=== PATIENT | female | born 1985 | race Caucasian/White ===

== ENCOUNTER 2017-11-05 11:37 | Emergency (ER) | payer BC ==
[2017-11-05] MEDS: NS 1,000 ML IV (13:28)
[2017-11-05 13:40] LABS: BASO # 0.1 10^3/uL (0.0-0.2); BASO % 0.4 % (0.0-1.0); EOS % 0.1 % (0.0-3.0); HEMATOCRIT 49.6 % (36.0-47.0); HEMOGLOBIN 17.5 g/dl (12.0-15.5); IMMATURE GRANULOCYTE % 0.4 % (0-3.0); LYMPH # 1.7 10^3/uL (1.5-4.5); LYMPH % 12.7 % (24.0-44.0); MEAN CORPUSCULAR HEMOGLOBIN 29.7 pg (27.0-33.0); MEAN CORPUSCULAR HGB CONC 35.3 g/dl (32.0-36.5); MEAN CORPUSCULAR VOLUME 84.2 fl (80.0-96.0); MONO # 0.5 10^3/uL (0.0-0.8); MONO % 3.5 % (0.0-5.0); NEUTROPHILS # 10.9 10^3/uL (1.8-7.7); NEUTROPHILS % 82.9 % (36.0-66.0); PLATELET COUNT, AUTOMATED 408 10^3/uL (150-450); RED BLOOD COUNT 5.89 10^6/uL (4.00-5.40); RED CELL DISTRIBUTION WIDTH 12.3 % (11.5-14.5); WHITE BLOOD COUNT 13.2 10^3/uL (4.0-10.0)
[2017-11-05 14:18] LABS: VITAMIN B12 LEVEL 551 PG/ML (247-911)
[2017-11-05 14:29] LABS: BLOOD UREA NITROGEN 8 MG/DL (7-18); CREATININE FOR GFR 0.85 MG/DL (0.55-1.30); GLOMERULAR FILTRATION RATE > 60.0 (>60); GLUCOSE, FASTING 96 MG/DL (70-100); SODIUM LEVEL 139 MEQ/L (136-145)
[2017-11-05 14:30] LABS: ANION GAP 10 MEQ/L (8-16); CALCIUM LEVEL 9.8 MG/DL (8.5-10.1); CARBON DIOXIDE LEVEL 25 MEQ/L (21-32); CHLORIDE LEVEL 104 MEQ/L (98-107)
[2017-11-05 14:31] LABS: ALT/SGPT 18 U/L (12-78); AST/SGOT 10 U/L (7-37); CK-MB VALUE MASS < 1.0 NG/ML (<3.6); CPK CREATINE PHOSPHOKINASE 48 U/L (26-192)
[2017-11-05 14:32] LABS: ALBUMIN 4.6 GM/DL (3.2-5.2); ALKALINE PHOSPHATASE 98 U/L (45-117); BILIRUBIN,TOTAL 0.7 MG/DL (0.2-1.0); TOTAL PROTEIN 8.7 GM/DL (6.4-8.2)
[2017-11-05 14:34] LABS: ALBUMIN/GLOBULIN RATIO 0.89 (1.00-1.93); FREE THYROXINE INDEX 4.5 % (1.3-4.8); T UPTAKE 31 % (30-39); THYROXINE (T4) 14.5 UG/DL (4.5-12.0); TROPONIN I < 0.02 NG/ML (< 0.10)
[2017-11-05 15:24] LABS: AMPHETAMINES LEVEL URINE NEGATIVE (NEGATIVE); BARBITURATES URINE NEGATIVE (NEGATIVE); BENZODIAZEPINES URINE NEGATIVE (NEGATIVE); CANNABINOIDS URINE NEGATIVE (NEGATIVE); COCAINE METABOLITE URINE NEGATIVE (NEGATIVE); METHADONE URINE NEGATIVE (NEGATIVE); OPIATES URINE NEGATIVE (NEGATIVE); PHENCYCLIDINE URINE NEGATIVE (NEGATIVE)
[2017-11-05 17:12] LABS: KETONE, URINE AUTO RFX 2+ mg/dL (NEGATIVE); MUCUS, URINE RFX MODERATE (NEGATIVE); NITRITE, URINE AUTO RFX NEGATIVE (NEGATIVE); RBC, URINE AUTO RFX 6 /HPF (0-3); SPECIFIC GRAVITY UR AUTO RFX 1.011 (1.002-1.035); SQUAM EPITHELIAL CELL UR AURFX 4 /HPF (0-6); WBC, URINE AUTO RFX 8 /HPF (0-3)
[2017-11-05 17:13] LABS: LEUKOCYTE ESTERASE UR AUTO RFX 2+ (NEGATIVE)
[2017-11-05 17:27] LABS: CONTROL LINE UCG INT CTR LINE PRESENT; URINE PREG TEST NEGATIVE (NEGATIVE)
== END 2017-11-05 18:02 | disposition home or self-care (01) ==
LOC: M ED 11:37
DX: F41.0 Panic disorder [episodic paroxysmal anxiety] (principal); N39.0 Urinary tract infection, site not specified
CPT/HCPCS: 71046

== ENCOUNTER → 2017-11-26 | Outpatient (REF) | payer BC ==
[2017-11-26 19:02] LABS: FERRITIN 60 NG/ML (8-252); IRON (FE) 63 UG/DL (50-170); PERCENT SATURATION 18.8 % (13.2-45.0); TOTAL IRON BINDING CAPACITY 335 UG/DL (250-450)
== END ==
LOC: M LAB REF 18:24
DX: R71.8 Other abnormality of red blood cells (principal)

== ENCOUNTER → 2020-03-23 | Outpatient (REF) | payer BC ==
[~2020-03-23] MED LIST: ANUS2.5C2 TOP; COLA50CA3 PO; HYDR-3363 PO; IBUP80TA PO; KEFL500C17 PO; MACR100C43 PO; MAPA500T17 PO; MILKSUS5 PO; SERT25TA21
[2020-03-23 21:30] LABS: APPEARANCE, URINE CLEAR (CLEAR); BACTERIA, URINE AUTO 2+ (NEGATIVE); BILIRUBIN, URINE AUTO NEGATIVE (NEGATIVE); BLOOD, URINE BLOOD NEGATIVE (NEGATIVE); COLOR, URINE STRAW (YELLOW); GLUCOSE, URINE (UA) AUTO NEGATIVE (NEGATIVE); KETONE, URINE AUTO NEGATIVE (NEGATIVE); LEUKOCYTE ESTERASE, URINE AUTO TRACE (NEGATIVE); MUCUS, URINE SMALL (NEGATIVE); NITRITE, URINE AUTO NEGATIVE (NEGATIVE); PROTEIN, URINE AUTO NEGATIVE (NEGATIVE); RBC, URINE AUTO 0 /HPF (0-3); SPECIFIC GRAVITY URINE AUTO 1.002 (1.002-1.035); SQUAMOUS EPITHELIAL CELL UR AU 1 /HPF (0-6); UROBILINOGEN, URINE AUTO 0.2 mg/dL (0.0-2.0); WBC, URINE AUTO 2 /HPF (0-3)
== END ==
LOC: M LAB 21:15
PROVIDERS: ATTEND Physician Assistant Medical
DX: N39.0 Urinary tract infection, site not specified (principal)

== ENCOUNTER 2020-03-25 08:18 | Emergency (ER) | payer BC, OTHER ==
[~2020-03-25] VITALS: Ht 165.1 cm; Wt 74.0 kg
[~2020-03-25 08:18] MED LIST changes: -MACR100C43 PO
--- OUTSIDE RECORDS SUMMARY | 2020-03-25 08:25 | CCD ---
Author Author [facility] Organization [facility] Address Unknown Phone Unavailable Care Team Providers Care Hand Candy Dipper Name Role Phone Drake, Genny DO Unavailable Unavailable Drake, Genny DO Unavailable Unavailable Drake, Genny DO Unavailable Unavailable Drake, Genny DO Unavailable Unavailable Drake, Genny DO Unavailable Unavailable Drake, Genny DO Unavailable Unavailable Drake, Genny DO Unavailable Unavailable Drake, Genny DO Unavailable Unavailable Drake, Genny DO Unavailable Unavailable Drake, Genny DO Unavailable Unavailable Drake, Genny DO Unavailable Unavailable Drake, Genny DO Unavailable Unavailable Drake, Genny DO Unavailable Unavailable Drake, Genny DO Unavailable Unavailable Drake, Genny DO Unavailable Unavailable Drake, Genny DO Unavailable Unavailable Drake, Genny DO Unavailable Unavailable Drake, Genny DO Unavailable Unavailable Drake, Genny DO Unavailable Unavailable Drake, Genny DO Unavailable Unavailable Drake, Genny DO Unavailable Unavailable Drake, Genny DO Unavailable Unavailable Drake, Genny DO Unavailable Unavailable Drake, Genny DO Unavailable Unavailable Drake, Genny DO Unavailable Unavailable Drake, Genny DO Unavailable Unavailable Drake, Genny DO Unavailable Unavailable Drake, Genny DO Unavailable Unavailable Drake, Genny DO Unavailable Unavailable Drake, Genny DO Unavailable Unavailable Drake, Genny DO Unavailable Unavailable Drake, Genny DO Unavailable Unavailable Drake, Genny DO Unavailable Unavailable Drake, Genny DO Unavailable Unavailable Drake, Genny DO Unavailable Unavailable Drake, Genny DO Unavailable Unavailable Drake, Genny DO Unavailable Unavailable Drake, Genny DO Unavailable Unavailable Drake, Genny DO Unavailable Unavailable Drake, Genny DO Unavailable Unavailable Drake, Genny DO Unavailable Unavailable Drake, Genny DO Unavailable Unavailable Drake, Genny DO Unavailable Unavailable Drake, Genny DO Unavailable Unavailable Drake, Genny DO Unavailable Unavailable Drake, Genny DO Unavailable Unavailable Drake, Genny DO Unavailable Unavailable Drake, Genny DO Unavailable Unavailable Drake, Genny DO Unavailable Unavailable Drake, Genny DO Unavailable Unavailable Drake, Genny DO Unavailable Unavailable Drake, Genny DO Unavailable Unavailable Drake, Genny DO Unavailable Unavailable Drake, Genny DO Unavailable Unavailable Drake, Genny DO Unavailable Unavailable Drake, Genny DO Unavailable Unavailable Drake, Genny DO Unavailable Unavailable Drake, Genny DO Unavailable Unavailable Drake, Genny DO Unavailable Unavailable Drake, Genny DO Unavailable Unavailable Drake, Genny DO Unavailable Unavailable Drake, Genny DO Unavailable Unavailable Drake, Genny DO Unavailable Unavailable Drake, Genny DO Unavailable Unavailable Drake, Genny DO Unavailable Unavailable Drake, Genny DO Unavailable Unavailable Drake, Genny DO Unavailable Unavailable Drake, Genny DO Unavailable Unavailable Drake, Genny DO Unavailable Unavailable Drake, Genny DO Unavailable Unavailable Drake, Genny DO Unavailable Unavailable Drake, Genny DO Unavailable Unavailable Re-disclosure Warning The records that you are about to access may contain information from federally-assisted alcohol or drug abuse programs. If such information is present, then the following federally mandated warning applies: This information has been disclosed to you from records protected by federal confidentiality rules (42 CFR part 2). The federal rules prohibit you from making any further disclosure of this information unless further disclosure is expressly permitted by the written consent of the person to whom it pertains or as otherwise permitted by 42 CFR part 2. A general authorization for the release of medical or other information is NOT sufficient for this purpose. The Federal rules restrict any use of the information to criminally investigate or prosecute any alcohol or drug abuse patient.The records that you are about to access may contain highly sensitive health information, the redisclosure of which is protected by Article 27-F of the [place] State Public Health law. If you continue you may have access to information: Regarding HIV / AIDS; Provided by facilities licensed or operated by the [facility] Office of Mental Health; or Provided by the [facility] Office for People With Developmental Disabilities. If such information is present, then the following [facility] mandated warning applies: This information has been disclosed to you from confidential records which are protected by state law. State law prohibits you from making any further disclosure of this information without the specific written consent of the person to whom it pertains, or as otherwise permitted by law. Any unauthorized further disclosure in violation of state law may result in a fine or nursing home sentence or both. A general authorization for the release of medical or other information is NOT sufficient authorization for further disc losure. Family History Family Member Name Family Member Gender Family Member Status Date o f Status Description Data Source(s) Unknown Female Problem [facility] ([facility]) Encounters Encounter Providers Location Date Indications Data Source(s ) Outpatient Attender: Genny Morejon 01/04 09:40:00 AM EST [facility] ([facility] ) Outpatient Attender: Genny Morejon 07/01 10:00:00 AM EDT [facility] ([facility] ) Immunizations Vaccine Date Status Description Data Source(s) INFLUENZA VIRUS VACCINE QUADRIVALENT 2019- (6 MOS AN D UP) 11/28/2019 12:00:00 AM EDT completed [facility] Medications Medication Brand Name Start Date Product Form Dose Route Admi nistrative Instructions Pharmacy Instructions Status Indications Reaction Description Data Source(s) 100 mg 03/23/2020 12:00:00 AM EST capsule 14 TAKE ONE CAPSULE BY MOUTH EVERY 12 HOURS FOR 7 DAYS TAKE ONE CAPSULE BY MOUTH EVERY 12 HOURS FOR 7 DAYS SO LD: 03/23/2020 [facility] Multi Vitamin 09/03/2019 12:00:00 AM EDT acti ve [facility] ([facility]) Fexofenadine hydrochloride 60 MG Oral Tablet Fexofenadine HC L 09/03/2019 12:00:00 AM EDT ORAL active M [facility] ([facility]) Hydroxyzine Hydrochloride 10 MG Oral Tablet Hydroxyzine HCL 09/03/2019 12:00:00 AM EDT ORAL active [facility] ([facility] 0.1 % 08/01/2019 12:00:00 AM EDT cream 60 APPLY TOPICALLY TWO TIMES A DAY APPLY TOPICALLY TWO TIMES A DAY SOLD: 08/01/2019 [facility] 50 mg 01/01/2019 12:00:00 AM EST tablet 30 TAKE ONE TABLET BY MOUTH EVERY DAY TAKE ONE TABLET BY MOUTH EVERY DAY SOLD: 03/14/2019 [facility] 50 mg 01/01/2019 12:00:00 AM EST tablet 30 TAKE ONE TABLET BY MOUTH EVERY DAY TAKE ONE TABLET BY MOUTH EVERY DAY SOLD: 02/07/2019 [facility] Insurance Providers Payer name Policy type / Coverage type Policy ID Covered green party ID Covered green party's relationship to guaman Policy [place] Plan Information [place] 302/307 [id number] [place] Trad/MX Commercial [id number] Family Dependen t [id number] [place] BCBS B [id number] P [id number] [place] P[place] 302/307 [id number] [place] BCBS B [id number] P [id number] [employer] BCBS B [id number] P [id number] [id number] [place] Trad/MX Commercial 802 Family Dependent 802 [employer] BC-BS PPO 306 [id number] [id number] [place] BC-BS PPO 306 [id number] Surgeries/Procedures Procedure Description Date Indications Data Source(s) XTRNL PT ACTIVATED ECG RECORD MONITOR 30 DAYS 09/04/19 20 12:00:00 AM EDT [facility] ([facility]) XTRNL PT ACTIVTD ECG DWNLD 30 DAYS PHYS R&I 09/04/2019 12:00:00 AM EDT [facility] ([facility]) Results ID Date Data Source [id number] 07/02/2019 08:57:00 AM EDT [facility] ([facility]) Name Value Range Interpretation Code Description Data Denisa rce(s) Supporting Document(s) Thyrotropin [Units/volume] in Serum or Plasma by Detec tion limit <= 0.05 mIU/L 1.95 uIU/mL 0.36-3.74 [facility] ([facility] ) ID Date Data Source [id number] 07/02/2019 08:57:00 AM EDT [facility]) Name Value Range Interpretation Code Description Data Denisa rce(s) Supporting Document(s) Cholesterol [Mass/volume] in Serum or Plasma 228 mg/dL 131-200 [facility] ([facility]) Cholesterol in HDL [Mass/volume] in Serum or Plasma 43 mg/dL 35-60 [facility] ([facility]) Triglyceride [Mass/volume] in Serum or Plasma 196 mg/dL 30-150 [facility] ([facility]) Cholesterol in LDL [Mass/volume] in Serum or Plasma by calcu lation 146 CALC 50-159 [facility] ([facility]) ID Date Data Source [id number] 07/02/2019 08:57:00 AM EDT [facility] ([facility]) Name Value Range Interpretation Code Description Data Denisa rce(s) Supporting Document(s) Glucose [Mass/volume] in Serum or Plasma 106 mg/dL 74-99 [facility] ([facility]) 100-125 mg/dL PRE-DIABETES/FASTING >126 mg/dL DIABETES/FASTING Urea nitrogen [Mass/volume] in Serum or Plasma 11 mg/dL 7-18 [facility] ([facility]) Creatinine 0.9 mg/dL 0.6-1.3 [facility]) Sodium [Moles/volume] in Serum or Plasma 143 meq/L 136-145 [facility] ([facility]) Potassium [Moles/volume] in Serum or Plasma 3.7 meq/L 3.5-5.1 [facility] ([facility]) Calcium [Mass/volume] in Serum or Plasma 8.6 mg/dL 8.5-10.1 [facility] ([facility]) Chloride [Moles/volume] in Serum or Plasma 106 meq/L 98-107 [facility] ([facility]) Carbon dioxide, total [Moles/volume] in Serum or Plasma 23 meq/L 21 -32 [facility] ([facility]) Total Bilirubin 0.3 mg/dL 0.2-1.0 [facility] ([facility]) Alkaline phosphatase isoenzyme [Units/volume] in Serum or Pl asma 79 mg/dL 46-116 [facility]) Aspartate aminotransferase [Enzymatic activity/volume] in Serum or Plasma 20 U/L 15-37 [facility] Alanine aminotransferase [Enzymatic activity/volume] in Seru m or Plasma 27 U/L 12-78 [facility] ([facility]) Albumin [Mass/volume] in Serum or Plasma 3.7 g/dL 3.4-5.0 [facility] ([facility]) A/G Ratio 1.09 CALC 1.00-1.90 [facility] Proteinase 3 Ab [Units/volume] in Serum 7.1 g/dL 6.4-8.2 [facility] Glomerular filtration rate/1.73 sq M pre dicted among non-blacks [Volume Rate/Area] in Serum or Plasma by Creatinine-based formula (MDRD) Laboratory test result [facility] Glomerular filtration rate/1.73 sq M pre dicted among blacks [Volume Rate/Area] in Serum or Plasma by Creatinine-based formula (MDRD) Laboratory test result [facility] <content>CHRONIC KIDNEY DISEASE STAGING PER NKF</content>
<content></content>
<content>STAGE I & II GFR >= 60 NORMAL TO MILDLY DECREASED</content>
<content>STAGE III GFR 30-59 MODERATELY DECREASED</content>
<content>STAGE IV GFR 15-29 SEVERELY DECREASED</content>
<content>STAGE V GFR <15 VERY LITTLE GFR LEFT</content>
<content>ESRD GFR <15 ON J2EE ARCHITECT</content>
<content></content> ID Date Data Source [id number] 07/02/2019 08:57:00 AM EDT [facility] ([facility]) Name Value Range Interpretation Code Description Data Denisa rce(s) Supporting Document(s) Leukocytes [#/volume] in Blood by Automated count 8.9 x10*3/UL 4.1-10 .9 [facility] Hematocrit [Volume Fraction] of Blood by Automated count 43.8 % 3 7.0-51.0 [facility] Hemoglobin [Mass/volume] in Blood 15.0 g/dL 12.0-18.0 [facility] Erythrocytes [#/volume] in Blood by Automated count 5.30 x10*6/UL 4.2 0-6.30 [facility] ([facility]) MCH 28.4 pg 26.0-32.0 [facility] MCHC 34.3 g/dL 31.0-38.0 [facility] MCV 82.6 fL 80.0-97.0 [facility] MPV 8.2 FL 7.8-11.0 [facility] Erythrocyte distribution width [Ratio] by Automated count 12.3 % 11.6-13.7 [facility] Platelets [#/volume] in Blood by Automated count 393 x10*3/UL 140-440 [facility] ([facility]) Mid % 9.3 % 1.7-9.3 [facility] Neut % 48.0 % 37.0-92.0 [facility] Lymph % 42.7 % 10.0-58.5 [facility] Lymph # 3.8 x10*3/UL 0.6-4.1 [facility] ([facility]) Neut # 4.2 x10*3/UL 2.0-7.8 [facility] ([facility]) Mid # 0.9 x10*3/UL 0.1-0.6 [facility] ([facility]) Procedure Vital Signs ID Date Data Source UNK Name Value Range Interpretation Code Description Data Source(s) Body mass index (BMI) [Ratio] 27.0 kg/m2 27.0 k g/m2 [facility] ([facility]) Oxygen saturation in Arterial blood by Pulse oximetry 98 % 98 % [facility] ([facility]) RM Air Body weight 165.00 [lb_av] 165.00 [lb_av] [facility] ([facility]) Body height 65.5 [in_i] 65.5 [in_i] [facility] ([facility]) 5'5.50" Heart rate 67 /min 67 /min [facility]) Diastolic blood pressure 76 mm[Hg] 76 mm[Hg] [facility] ([facility]) Systolic blood pressure 122 mm[Hg] 122 mm[Hg] [facility] Body mass index (BMI) [Ratio] 27.9 kg/m2 27.9 k g/m2 [facility] ([facility]) Oxygen saturation in Arterial blood by Pulse oximetry 98 % 98 % [facility] ([facility]) RM Air Body weight 170.00 [lb_av] 170.00 [lb_av] [facility] Body height 65.5 [in_i] 65.5 [in_i] [facility] ([facility]) 5'5.50" Heart rate 102 /min 102 /min [facility]) Diastolic blood pressure 78 mm[Hg] 78 mm[Hg] [facility] ([facility]) Systolic blood pressure 122 mm[Hg] 122 mm[Hg] [facility]
--- OUTSIDE RECORDS SUMMARY | 2020-03-25 08:25 | CCD | Continuity of Care Document ---
Author Author Kailyn KNAPP Organization Unknown Address [address] [address] Phone [phone] Care Team Providers Care Claims Attorney Name Role Phone Genny Knapp DO AUTM Unavailable Problems Description No Information Available Social History Type Date Description Comments Sex Unknown ETOH Use Rarely consumes alcohol Tobacco Use Start: Unknown End: Unknown Patient is a former smoker Quit 02/28/16. Not smoking any more Allergies, Adverse Reactions, Alerts Description No Known Drug Allergies Medications Active Medications SIG Qnty Indications Ordering Provide r Date Fexofenadine HCL 180mg Tablets 1 by mouth every day prn 30tabs Genny Knapp DO 07/24/2017 Multivitamins Capsules 1 by mouth every other day- sporatic Genny Knapp DO 12/14/2015 Hydroxyzine HCL 25mg Tablets 1/2 tablet by mouth 3 times daily as needed for anxiety. Unkno wn Immunizations Description No Information Available Vital Signs Date Vital Result Comment 01/05/2020 10:31am BP Systolic 122 mmHg BP Diastolic 76 mmHg Heart Rate 67 /min Height 65.5 inches 5'5.50" Weight 165.00 lb O2 % BldC Oximetry 98 % RM Air BMI (Body Mass Index) 27.0 kg/m2 07/02/2019 9:46am BP Systolic 122 mmHg BP Diastolic 78 mmHg Heart Rate 102 /min Height 65.5 inches 5'5.50" Weight 170.00 lb O2 % BldC Oximetry 98 % RM Air BMI (Body Mass Index) 27.9 kg/m2 Results Description No Information Available Procedures Date Code Description Status 10/09/2017 [id number] Mammogram Completed Medical Devices Description No Information Available Encounters Type Date Location Provider Dx Diagnosis Office Visit 01/05/2020 10:40a [facility] Genny Knapp DO F41.1 Generalized anxiety disorder F41.0 Panic disorder [episodic par oxysmal anxiety] E78.5 Hyperlipidemia, unspecified E55.9 Vitamin D deficiency, unspec ified Assessments Date Code Description Provider 01/05/2020 F41.1 Generalized anxiety disorder Gee Knapp, 01/05/2020 F41.0 Panic disorder [episodic paroxys mal anxiety] Genny Knapp DO 01/05/2020 E78.5 Hyperlipidemia, unspecified Aris Knapp DO 01/05/2020 E55.9 Vitamin D deficiency, unspecifie d Genny Knapp DO Plan of Treatment Future Appointment(s):* 07/05/2020 10:00 am - Genny Knapp DO at [facility] 01/05/2020 - Genny Knapp DO* F41.1 Generalized anxiety disorder * F41.0 Panic disorder [episodic paroxysmal anxiety] * E78.5 Hyperlipidemia, unspecified * E55.9 Vitamin D deficiency, unspecified Functional Status Description No Information Available Mental Status Description No Information Available Referrals Refer to Reason for Referral Status Appt Date Guerrero Horvath MD 30 DAY EVENT MONITOR DX: PALPITATIONS NO PRIOR AUTH REQ Patient Notified 09/04/2019 [facility] [address], [facility] [place] [phone]
--- OUTSIDE RECORDS SUMMARY | 2020-03-25 08:25 | CCD | Continuity of Care Document ---
Author Author Kailyn KNAPP Organization Unknown Address [address] [address] Phone [phone] Care Team Providers Care Concession Worker Name Role Phone Genny Knapp DO AUTM [...] Available Procedures Date Code Description Status 10/09/2017 [id number] Mammogram Completed Medical Devices Description No Information Available Encounters Description No Information Available Assessments Description No Information Available Plan of Treatment 07/02/2019 - Genny Knapp DO* F41.0 Panic disorder [episodic paroxysmal anxiety] * F41.1 Generalized anxiety disorder * E78.5 Hyperlipidemia, unspecified * All * Comments:* See her back for a follow up visit to see how she is doing. She needs to follow up with Dr. Avelar as scheduled. She needs to let him know what is going on with her with these palpitations and when she is having them so that this can be addressed further as what it looks like with a panic disorder and generalized anxiety disorder Functional Status Description No Information Available Mental Status Description No Information Available Referrals Refer to Reason for Referral Status Appt Date Guerrero Horvath MD 30 DAY EVENT MONITOR DX: PALPITATIONS NO PRIOR AUTH REQ Patient Notified 09/04/2019 [facility] [address], [facility] [place] [phone]
[2020-03-25] MEDS ORDERED: MACR100C43 PO (08:41)
--- OUTSIDE RECORDS SUMMARY | 2020-03-25 09:27 | CCD ---
Author Author [facility] Organization [facility] Address Unknown Phone Unavailable Care Team Providers Care Dealer Account Manager Name Role Phone Drake, Genny DO Unavailable Unavailable Drake, Genny DO Unavailable Unavailable Drkae, Genny DO Unavailable Unavailable Drake, Genny DO [...] is protected by Article 27-F of the [place] State Public Health law. If you continue you may have access to information: Regarding HIV / AIDS; Provided by facilities licensed or operated by the [facility] Office of Mental Health; or Provided by the [facility] Office for People With Developmental Disabilities. If such information is present, then the following [facility] mandated warning applies: This information has been [...] law may result in a fine or care home sentence or both. A general authorization for the release of medical or other information is NOT sufficient authorization for further disc losure. Family History Family Member Name Family Member Gender Family Member Status Date o f Status Description Data Source(s) Unknown Female Problem [facility] ([facility]) Encounters Encounter Providers Location Date Indications Data Source(s ) Outpatient Attender: Genny Morejon 01/04 09:40:00 AM EST [facility] ([facility] ) Outpatient Attender: Genny Morejon 07/01 10:00:00 AM EDT [facility] ([facility] ) Immunizations Vaccine Date Status Description [...] AM EDT acti ve [facility] ([facility]) Fexofenadine hydrochloride 60 MG Oral Tablet Fexofenadine HC L 09/03/2019 12:00:00 AM EDT ORAL active M [facility] ([facility]) Hydroxyzine Hydrochloride 10 MG Oral Tablet Hydroxyzine HCL 09/03/2019 12:00:00 AM EDT ORAL active [facility] 0.1 % 08/01/2019 12:00:00 AM EDT cream [...] type / Coverage type Policy ID Covered alliance party ID Covered alliance party's relationship to guaman Policy Guaman Plan Information [facility] [id number] [id number] [place] [place] PPO 302/307 [id number] BS [place] Trad/[place] Commercial [id number] Family Dependen t [id number] [employer]CE[employer] BCBS B [id number] P [id number] [place] PPO 302/307 [id number] HU2 [id number] [employer] BCBS B [id number] P YND [id number] [employer] BCBS B [id number] P VYS [id number] BS [place] Trad/MX Commercial 802 Family Dependent 802 EXCELLUS BC-BS PPO 306 [id number] HU2 [id number] [employer] BC-BS PPO 306 [id number] HU2 [id number] Surgeries/Procedures Procedure Description Date Indications Data Source(s) XTRNL PT ACTIVATED ECG RECORD MONITOR 30 DAYS 09/04/19 12:00:00 AM EDT [facility] ([facility]) XTRNL PT ACTIVTD ECG DWNLD 30 DAYS PHYS R&I 09/04/2019 12:00:00 AM EDT [facility] ([facility]) Results ID Date Data Source [id number] 07/02/2019 08:57:00 AM EDT [facility] ([facility]) Name Value Range Interpretation Code Description Data Denisa rce(s) Supporting Document(s) Thyrotropin [Units/volume] in Serum or Plasma by Detec tion limit <= 0.05 mIU/L 1.95 uIU/mL 0.36-3.74 [facility] ) ID Date Data Source [id number] 07/02/2019 08:57:00 AM EDT [facility] ([facility]) Name Value Range Interpretation Code Description Data Denisa rce(s) Supporting Document(s) Cholesterol [Mass/volume] in Serum or Plasma 228 mg/dL 131-200 [facility] ([facility]) Cholesterol in HDL [Mass/volume] in Serum or Plasma 43 mg/dL 35-60 [facility] ([facility]) Triglyceride [Mass/volume] in Serum or Plasma 196 mg/dL 30-150 [facility] ([facility]) Cholesterol in LDL [Mass/volume] in Serum or Plasma by calcu lation 146 CALC 50-159 [facility] ([facility]) ID Date Data Source [id number] 07/02/2019 08:57:00 AM EDT [facility] ([facility]) Name Value Range Interpretation Code Description Data Denisa rce(s) Supporting Document(s) Glucose [Mass/volume] in Serum or Plasma 106 mg/dL 74-99 [facility] ([facility]) 100-125 mg/dL PRE-DIABETES/FASTING >126 mg/dL DIABETES/FASTING Urea nitrogen [Mass/volume] in Serum or Plasma 11 mg/dL 7-18 [facility] ([facility]) Creatinine 0.9 mg/dL 0.6-1.3 [facility] Sodium [Moles/volume] in Serum or Plasma 143 meq/L 136-145 [facility] ([facility]) Potassium [Moles/volume] in Serum or Plasma 3.7 meq/L 3.5-5.1 [facility] ([facility]) Calcium [Mass/volume] in Serum or Plasma 8.6 mg/dL 8.5-10.1 [facility] ([facility]) Chloride [Moles/volume] in Serum or Plasma 106 meq/L 98-107 [facility] ([facility]) Carbon dioxide, total [Moles/volume] in Serum or Plasma 23 meq/L 21 -32 [facility] ([facility]) Total Bilirubin 0.3 mg/dL 0.2-1.0 [facility] ([facility]) Alkaline phosphatase isoenzyme [Units/volume] in Serum or Pl asma 79 mg/dL 46-116 [facility] ([facility]) Aspartate aminotransferase [Enzymatic activity/volume] in Serum or Plasma 20 U/L 15-37 [facility] ([facility] ) Alanine aminotransferase [Enzymatic activity/volume] in Seru m or Plasma 27 U/L 12-78 [facility] ([facility]) Albumin [Mass/volume] in Serum or Plasma 3.7 g/dL 3.4-5.0 [facility] ([facility]) A/G Ratio 1.09 CALC 1.00-1.90 [facility] Proteinase 3 Ab [Units/volume] in Serum 7.1 g/dL 6.4-8.2 [facility] ([facility]) Glomerular filtration rate/1.73 sq M pre dicted among non-blacks [Volume Rate/Area] in Serum or Plasma by Creatinine-based formula (MDRD) Laboratory test result [facility] Glomerular filtration rate/1.73 sq M pre dicted among blacks [Volume Rate/Area] in Serum or Plasma by Creatinine-based formula (MDRD) Laboratory test result [facility] ([facility]) <content>CHRONIC KIDNEY DISEASE STAGING PER NKF</content>
<content></content>
<content>STAGE I & II GFR >= 60 NORMAL TO MILDLY DECREASED</content>
<content>STAGE III GFR 30-59 MODERATELY DECREASED</content>
<content>STAGE IV GFR 15-29 SEVERELY DECREASED</content>
<content>STAGE V GFR <15 VERY LITTLE GFR LEFT</content>
<content>ESRD GFR <15 ON [employer]EST N[employer] SUPERVISOR</content>
<content></content> ID Date Data Source [id number] 07/02/2019 08:57:00 AM EDT [facility] ([facility]) Name Value Range Interpretation Code Description Data Denisa rce(s) Supporting Document(s) Leukocytes [#/volume] in Blood by Automated count 8.9 x10*3/UL 4.1-10 .9 [facility] ([facility]) Hematocrit [Volume Fraction] of Blood by Automated count 43.8 % 3 7.0-51.0 [facility] ([facility]) Hemoglobin [Mass/volume] in Blood 15.0 g/dL 12.0-18.0 [facility] ([facility]) Erythrocytes [#/volume] in Blood by Automated count 5.30 x10*6/UL 4.2 0-6.30 [facility] ([facility]) MCH 28.4 pg 26.0-32.0 [facility] MCHC 34.3 g/dL 31.0-38.0 [facility]) MCV 82.6 fL 80.0-97.0 [facility] MPV 8.2 FL 7.8-11.0 [facility] Erythrocyte distribution width [Ratio] by Automated count 12.3 % 11.6-13.7 [facility] ([facility]) Platelets [#/volume] in Blood by Automated count 393 x10*3/UL 140-440 [facility] ([facility]) Mid % 9.3 % 1.7-9.3 [facility] Neut % 48.0 % 37.0-92.0 [facility] Lymph % 42.7 % 10.0-58.5 [facility] Lymph # 3.8 x10*3/UL 0.6-4.1 [facility] ([facility]) Neut # 4.2 x10*3/UL 2.0-7.8 [facility] ([facility]) Mid # 0.9 x10*3/UL 0.1-0.6 [facility] ([facility]) Procedure Vital Signs ID Date Data Source UNK Name Value Range Interpretation Code Description Data Source(s) Body mass index (BMI) [Ratio] 27.0 kg/m2 27.0 k g/m2 [facility] ([facility]) Oxygen saturation in Arterial blood by Pulse oximetry 98 % 98 % [facility] ([facility]) RM Air Body weight 165.00 [lb_av] 165.00 [lb_av] [facility] ([facility]) Body height 65.5 [in_i] 65.5 [in_i] [facility] ([facility]) 5'5.50" Heart rate 67 /min 67 /min [facility] ([facility]) Diastolic blood pressure 76 mm[Hg] 76 mm[Hg] [facility] ([facility]) Systolic blood pressure 122 mm[Hg] 122 mm[Hg] [facility] ([facility]) Body mass index (BMI) [Ratio] 27.9 kg/m2 27.9 k g/m2 [facility] ([facility]) Oxygen saturation in Arterial blood by Pulse oximetry 98 % 98 % [facility] ([facility]) RM Air Body weight 170.00 [lb_av] 170.00 [lb_av] [facility] ([facility]) Body height 65.5 [in_i] 65.5 [in_i] [facility] ([facility]) 5'5.50" Heart rate 102 /min 102 /min [facility] ([facility]) Diastolic blood pressure 78 mm[Hg] 78 mm[Hg] [facility] ([facility]) Systolic blood pressure 122 mm[Hg] 122 mm[Hg] [facility] ([facility])
--- NOTE | 2020-03-25 09:37 | REP ---
INDICATION: head pressure, HTN COMPARISON: 11/05/2017 TECHNIQUE: Axial noncontrast images from the skull base to the vertex with coronal reformations. This CT examination was performed using the following dose reduction techniques: Automated exposure control, adjustment of mA and/or kv according to the patient's size, and use of iterative reconstruction technique. FINDINGS: The ventricles, sulci, and cisterns are normal in position and appearance. Blunt-white differentiation is maintained. No acute intracranial hemorrhage, mass/mass effect, pathology or trauma/injury. No evidence for acute infarction. No extra-axial fluid collection. Calvarium is intact. Paranasal sinuses and mastoid air cells are clear. IMPRESSION: Normal noncontrast head CT. No evidence for acute intracranial pathology or trauma/injury. <Electronically signed by Naresh Weldon > 03/25/20 0915
[2020-03-25] MEDS ORDERED: ACETAMINOPHEN TAB 650MG DOSE (2X325MG) PO ONE (09:45)
[2020-03-25 10:15] VITALS: BP 143/83
== END 2020-03-25 10:15 | disposition home or self-care (01) ==
LOC: M ED 08:18
DX: G44.229 Chronic tension-type headache, not intractable (principal); F33.9 Major depressive disorder, recurrent, unspecified; F41.9 Anxiety disorder, unspecified; Z79.899 Other long term (current) drug therapy; Z87.891 Personal history of nicotine dependence

== ENCOUNTER → 2021-01-25 | Outpatient (REF) | payer OTHER ==
[~2021-01-25] MED LIST changes: +MACR100C43 PO
[2021-01-25 12:08] LABS: APPEARANCE, URINE CLEAR (CLEAR); BACTERIA, URINE AUTO 1+ (NEGATIVE); BILIRUBIN, URINE AUTO NEGATIVE (NEGATIVE); BLOOD, URINE BLOOD 1+ (NEGATIVE); COLOR, URINE STRAW (YELLOW); GLUCOSE, URINE (UA) AUTO NEGATIVE (NEGATIVE); KETONE, URINE AUTO NEGATIVE (NEGATIVE); LEUKOCYTE ESTERASE, URINE AUTO NEGATIVE (NEGATIVE); NITRITE, URINE AUTO NEGATIVE (NEGATIVE); PROTEIN, URINE AUTO NEGATIVE (NEGATIVE); RBC, URINE AUTO 0 /HPF (0-3); SPECIFIC GRAVITY URINE AUTO 1.004 (1.002-1.035); SQUAMOUS EPITHELIAL CELL UR AU 0 /HPF (0-6); UROBILINOGEN, URINE AUTO 0.2 mg/dL (0.0-2.0); WBC, URINE AUTO 0 /HPF (0-3)
== END ==
LOC: M LAB REF 11:25
PROVIDERS: ATTEND Physician Assistant Medical
DX: R30.0 Dysuria (principal)

== ENCOUNTER 2023-10-07 19:21 | Emergency (ER) | payer BC, OTHER ==
[~2023-10-07] VITALS: Ht 165.1 cm; Wt 63.0 kg
[2023-10-07 19:21] VITALS: BP 168/85; TEMP 98; O2SAT 100
[2023-10-07 19:55] LABS: BASO # 0.1 10^3/uL (0.0-0.2); BASO % 0.7 % (0.0-1.0); EOS # 0.3 10^3/uL (0.0-0.5); HEMATOCRIT 40.5 % (36.0-47.0); HEMOGLOBIN 13.7 g/dl (12.0-15.5); LYMPH # 3.7 10^3/uL (1.5-5.0); LYMPH % 34.9 % (24.0-44.0); MEAN CORPUSCULAR HGB CONC 33.8 g/dl (32.0-36.5); MEAN CORPUSCULAR VOLUME 88.6 fl (80.0-96.0); MONO # 0.8 10^3/uL (0.0-0.8); MONO % 7.7 % (2.0-8.0); NEUTROPHILS # 5.7 10^3/uL (1.5-8.5); NEUTROPHILS % 53.4 % (36.0-66.0); PLATELET COUNT, AUTOMATED 345 10^3/uL (150-450); RED BLOOD COUNT 4.57 10^6/uL (4.00-5.40); WHITE BLOOD COUNT 10.7 10^3/uL (4.0-10.0)
[2023-10-07 20:18] LABS: BLOOD UREA NITROGEN 13 MG/DL (9-23); CALCIUM LEVEL 8.8 MG/DL (8.5-10.1); CARBON DIOXIDE LEVEL 28 MMOL/L (20-31); CHLORIDE LEVEL 107 MMOL/L (98-107); CREATININE FOR GFR 0.71 MG/DL (0.55-1.30); GLOMERULAR FILTRATION RATE > 60.0 (>60); GLUCOSE, FASTING 90 MG/DL (60-100); HCG, SERUM QUANTITATIVE 7.1 MIU/ML (<4.2); POTASSIUM SERUM 3.7 MMOL/L (3.5-5.1); SODIUM LEVEL 140 MMOL/L (136-145)
== END 2023-10-07 23:28 | disposition home or self-care (01) ==
LOC: M ED 19:21
DX: O20.0 Threatened abortion (principal); Z79.899 Other long term (current) drug therapy

== ENCOUNTER → 2023-10-09 | Outpatient (CLI) | payer BC | LOC: M PLALAB 09:20 | PROVIDERS: ATTEND Physician Assistant Medical | DX: O20.0 Threatened abortion (principal); Z3A.00 Weeks of gestation of pregnancy not specified ==

== ENCOUNTER → 2024-04-08 | Outpatient (REF) | payer BC | LOC: M LAB REF 12:10 | PROVIDERS: ATTEND Nurse Practitioner Family | DX: N61.1 Abscess of the breast and nipple (principal) ==

== ENCOUNTER → 2024-12-04 | Outpatient (REF) ==
[2024-12-04 09:23] LABS: SOFIA COVID ANTIGEN NEGATIVE (NEGATIVE)
== END ==
LOC: M EMP 08:48
PROVIDERS: ATTEND Family Medicine
DX: Z01.89 Encounter for other specified special examinations (principal)